=== PATIENT | male | born 1970 | race American Indian/Alaskan Native ===

== ENCOUNTER 2019-09-12 11:12 | Emergency (ER) | payer SELFPAY ==
[2019-09-12 12:24] VITALS: BP 145/85
--- NOTE | 2019-09-12 12:24 | Event Note ---
ED Screening Note ED Screening Note: left knee pain and edema began suddenly last night he is now walking with crutches no fall or injury states the knee is giving out on him never injured before This initial assessment/diagnostic orders/clinical plan/treatment(s) is/are subject to change based on patients health status, clinical progression and re- assessment by fellow clinical providers in the ED. Further treatment and workup at subsequent clinical providers discretion. Patient/guardian urged not to elope from the ED as their condition may be serious if not clinically assessed and managed. Initial orders include: XR knee
--- NOTE | 2019-09-12 13:21 | XRay Report ---
Left knee-4 views INDICATION: left knee pain and edema began last night. COMPARISON: None. IMPRESSION: No acute osseous or soft tissue abnormality. Mild tricompartmental DJD. Signer Name: Augusto Ramey MD Signed: 09/12/2019 1:16 PM Workstation Name: [id number]
--- NOTE | 2019-09-12 17:59 | Emergency Department Report ---
ED Extremity Problem HPI - General Chief complaint: Extremity Problem,Nontraumatic Stated complaint: LEFT KNEE PAIN Time Seen by Provider: 09/12/19 12:21 Source: patient Mode of arrival: Ambulatory Limitations: No Limitations - History of Present Illness Initial comments: 49-year-old -Romanian male presents to the emergency room complaining of left knee pain that started 1 day ago. Patient states that the pain pain is located in the anterior knee and it is worse when he gets up to walk. Patient states it gets better when he rests but then he has to get up because it starts to irritate. Patient is taken nothing for pain. Patient reports he does have a past medical history of GERD and hypertension and takes his medications. Patient denies any injury to his knee. MD Complaint: extremity pain, extremity swelling Onset/Timin Location: left, knee History of Same: No -: Yes arthralgia Quality: aching, sharp Consistency: intermittent Worsens with: walking Associated Symptoms: denies other symptoms - Related Data Previous Rx's Medication Instructions Recorded Last Taken Type Meloxicam [Mobic] 15 mg PO QDAY #15 tablet 09/12/19 Unknown Rx Allergies Allergy/AdvReac Type Severity Reaction Status Date / Time clindamycin AdvReac Diarrhea Verified 09/12/19 11:25 ED Review of Systems ROS: Stated complaint: LEFT KNEE PAIN Other details as noted in HPI Comment: All other systems reviewed and negative ED Past Medical Hx - Past Medical History Previous Medical History?: Yes Hx GERD: Yes Hx Asthma: Yes - Surgical History Past Surgical History?: No - Social History Smoking Status: Never Smoker Substance Use Type: None - Medications Home Medications: Home Medications Medication Instructions Recorded Confirmed Last Taken Type Meloxicam [Mobic] 15 mg PO QDAY #15 tablet 09/12/19 Unknown Rx ED Physical Exam - General Limitations: No Limitations General appearance: alert, in no apparent distress - Head Head exam: Present: atraumatic, normocephalic - ENT ENT exam: Present: mucous membranes moist - Neck Neck exam: Present: normal inspection - Expanded Lower Extremity Exam Left Knee exam: Present: full ROM, tenderness, swelling. Absent: abrasion, deformity, erythema, effusion Lower Leg exam: Present: normal inspection, full ROM. Absent: tenderness, swelling Ankle exam: Present: normal inspection, full ROM. Absent: tenderness Neuro vascular tendon exam: Present: no vascular compromise - Back Exam Back exam: Present: normal inspection - Neurological Exam Neurological exam: Present: alert, oriented X3 - Psychiatric Psychiatric exam: Present: normal affect, normal mood - Skin Skin exam: Present: warm, dry, intact, normal color. Absent: rash ED Course Vital Signs 09/12/19 12:21 Temperature 98.5 F Pulse Rate 78 Respiratory 20 Rate Blood Pressure 145/85 O2 Sat by Pulse 98 Oximetry ED Medical Decision Making - Radiology Data Radiology results: report reviewed Referring Physician:DARRYL RIVERAPatient Name:KAILA SHOEMAKERPatient ID:[id number] of :[id number]:MaleAccession:[id number] Date:[id number] Status:Finalized Findings [facility] [address] [place] [address] XRay Report Signed Patient: KAILA SHOEMAKER MR#: [id number] : 1970 Acct:[id number] Age/Sex: 49 / M ADM Date: 09/12/19 Loc: ED Attending Dr: Ordering Physician: MEREDITH JOHN Date of Service: 09/12/19 Procedure(s): XR knee 3V LT Accession Number(s): [id number] cc: MEREDITH JOHN Fluoro Time In Minutes: Left knee-4 views INDICATION: left knee pain and edema began last night. COMPARISON: None. IMPRESSION: No acute osseous or soft tissue abnormality. Mild tricompartmental DJD. Signer Name: Augusto Ramey MD Signed: 09/12/2019 1:16 PM Workstation Name: [id number] Transcribed By: JW Dictated By: Augusto Ramey MD Electronically Authenticated By: Augusto Ramey MD Signed Date/Time: 09/12/19 1316 DD/ 1316 TD/TT: - Medical Decision Making 49-year-old -Romanian male presents to the emergency room complaining of left knee pain that started 1 day ago. Patient states that the pain pain is located in the anterior knee and it is worse when he gets up to walk. Patient states it gets better when he rests but then he has to get up because it starts to irritate. Patient is taken nothing for pain. Patient reports he does have a past medical history of GERD and hypertension and takes his medications. Patient denies any injury to his knee. X-ray of left knee shows tricompartment degenerative changes no fractures or infusion of subluxation. Recommend Mobic and a knee neoprene brace follow-up with orthopedic provider. Critical care attestation.: If time is entered above; I have spent that time in minutes in the direct care of this critically ill patient, excluding procedure time. ED Disposition Clinical Impression: Arthritis of knee, left Disposition: DC-01 TO HOME OR SELFCARE Is pt being admited?: No Does the pt Need Aspirin: No Condition: Stable Instructions: Osteoarthritis (ED) Additional Instructions: Take pain medication as prescribed increase your fluid intake. Follow-up with orthopedic provider. Prescriptions: Meloxicam [Mobic] 15 mg PO QDAY #15 tablet [facility] MD FAINA [Primary Care Provider] - 3-5 Days MICHELE GUEVARA MD [Staff Physician] - 3-5 Days
== END 2019-09-12 18:18 | disposition home or self-care (01) ==
LOC: ED 11:12
DX: M13.862 Other specified arthritis, left knee (principal); K21.9 Gastro-esophageal reflux disease without esophagitis; J45.909 Unspecified asthma, uncomplicated; Z79.899 Other long term (current) drug therapy; Z88.1 Allergy status to other antibiotic agents